=== PATIENT | male | born 1995 | race Caucasian/White ===

== ENCOUNTER 2023-08-24 08:47 | Emergency (ER) | payer SELFPAY ==
[~2023-08-24] VITALS: Ht 175.3 cm; Wt 70.0 kg
[2023-08-24 08:49] VITALS: BP 187/121; PULSE 91; RESP 16; TEMP 98.1; O2SAT 99
[2023-08-24] MEDS ORDERED: NALO4SPR BOTHNSTRLS (08:50)
== END 2023-08-24 09:04 | disposition home or self-care (01) ==
LOC: ER 09:02
DX: F11.23 Opioid dependence with withdrawal (principal); J45.909 Unspecified asthma, uncomplicated
CPT/HCPCS: 99283